=== PATIENT | male | born 1975 ===

== ENCOUNTER 2017-04-26 06:08 | Day surgery (SDC) | payer BC ==
[2017-04-24 10:07] VITALS: BMI 25.6
[2017-04-26] MEDS ORDERED: Propofol 10 mg/ml Inj (20 ML) ONE (07:20)
[2017-04-26] MEDS ORDERED: Rocuronium 10 mg/ml (5 ml) ONE ×2 (07:20→09:23)
[2017-04-26] MEDS ORDERED: Succinylcholine 200 mg/10 ml Inj IV ONE (07:21)
[2017-04-26] MEDS ORDERED: Etomidate 20 mg/10ml Inj IV ONE (07:21)
[2017-04-26] MEDS ORDERED: Phenylephrine 10 mg/ml Inj ONE (07:23)
--- NOTE | 2017-04-26 07:25 | CP.SDSHP ---
Same Day Surgery H & P - History Proposed Procedure: Left shoulder acromioclavicular joint reconstruction Pre-Op Diagnosis: Left shoulder AC joint separation - Previous Medical/Surgical History Pain: 6.Severe Pain Previous Surgical History: None - Allergies Allergies: Allergies No Known Allergies Allergy (Verified 04/14/17 12:49) - Current Medications Current Medications: none - Physical Exam General Appearance: No acute distress Vital Signs: Vital Signs 04/26/17 07:10 Temperature 98 F Pulse Rate 66 Respiratory 18 Rate Blood Pressure 143/78 O2 Sat by Pulse 98 Oximetry Mental Status: Alert & Oriented x3 Neuro: WNL Heart: WNL Lungs: WNL GI: WNL - {Optional Preform as Required} Abdomen: WNL Integument: WNL Ortho: Other (Left shoulder: +tenderness AC joint, ROM 0-100, sensation intact MN/UN/RN, motor intact MN/UN/AIN/PIN, radial pulse intact) ENT: WNL - Impression Impression: Patient is a 41 y/o M with a left shoulder AC joint separation who presents for L shoulder AC joint reconstruction. The risks and benefits of the procedure were explained to the patient and he agrees to proceed. Pt. Evaluated Today:Candidate for Anesthesia & Procedure: Yes - Date & Time Date: 04/26/17 Time: 07:25 Short Stay Discharge - Short Stay Discharge Admitting Diagnosis/Reason for Visit: S83.512IA Disposition: HOME/ ROUTINE Referrals: Luis Miguel Coronel [Primary Care Provider] -
[2017-04-26] MEDS ORDERED: Bupivacaine HCl 0.25% PF (10 ml) Inj ONE (07:27)
[2017-04-26] MEDS ORDERED: Bupivacaine HCl/Epi 0.5% 1:20000 30 ML SOL IJ ONE (07:27)
[2017-04-26] MEDS ORDERED: Neostigmine 1:1000 (1 mg/ml) Inj ONE (07:28)
[2017-04-26] MEDS ORDERED: Lactated Ringer's 1,000 ML IV ONE ×2 (07:30→10:45)
[2017-04-26] MEDS ORDERED: Bacitracin Ointment 30 GM TUBE ONE (07:37)
[2017-04-26] MEDS ORDERED: Lidocaine 1% w Epi 1:100,000 Inj ONE (07:37)
[2017-04-26] MEDS ORDERED: Lidocaine 1% Inj (20ml) ONE (07:37)
[2017-04-26] MEDS ORDERED: Midazolam 2 MG/2 ML VIAL ONE (08:04)
[2017-04-26] MEDS ORDERED: EPINEPHrine 1 mg/ml (1:1000) Inj ONE (09:00)
[2017-04-26] MEDS ORDERED: Dexamethasone 4 mg/1 ml ONE (09:39)
[2017-04-26] MEDS ORDERED: EPINEPHrine 1 mg/ml (1:1000) Inj IV ONE (09:45)
[2017-04-26] MEDS ORDERED: Bupivacaine 0.5% Inj(30mL) ONE (09:57)
[2017-04-26] MEDS ORDERED: MethylPREDNISolone Depo 40 mg/ml Inj ONE (09:57)
[2017-04-26] MEDS ORDERED: HYDROmorphone 0.5 mg/0.5 ml ISec IVP PRN (11:17)
--- NOTE | 2017-04-26 11:20 | PCM.ANESB1 ---
Interscalene Block - Brachial Plexus Date of Procedure: 04/26/17 Anesthesiologist: Yoko Pre-Procedure Diagnosis: Left AC joint disruption Post-Procedure Diagnosis: Samen Procedure Performed: Interscalene Block of Brachial Plexus Left - Procedure Interscalene Block of Brachial Plexus: This procedure was explained to the patient that it is for post-operative pain management. Consent was obtained after a thorough discussion with the patient regarding the benefits and possible complications of local anesthetic block of the Brachial Plexus at the Interscalene area. The patient was brought to the Operating Room and standard monitors were applied. Time out was held with the circulating nurse to confirm the correct surgery and appropriate block. After applying Oxygen by nasal cannula and administering IV Sedation, the patient's head was gently rotated away from the __left____operative shoulder and the anterior scalene groove was carefully palpated. The ultrasound transducer was then applied to the skin in the transverse plane and the brachial plexus was visualized lateral to the carotid artery and in between the anterior and middle scalene muscles. After identification,the anterior lateral portion of the neck was prepped with Chloraprep. At this point, a # 22 gauge Stimuplex 2 inches insulated needle was inserted into the interscalene groove and directed in a caudal and midline direction. The needle was inserted lateral to the ultrasound transducer in-plane towards the brachial plexus in a [id number] direction. Needle advancement was performed carefully under direct ultrasound visualization. Nerve stimulator was used and twitched of the affected extremity including the hand brachialis muscles, biceps and the deltoid was obtained at a current of __0.4___MA. After repeated negative aspiration,___2__cc of__0.5%___,__bupivicaine with 1:200,000 epinephrine were injected and this was followed with _28____cc of _0.5____% _bupivicaine with 1:200,000 epinephrine . Under ultrasound guidance the local anesthetics were observed surrounding the roots of the brachial plexus. The needle was removed intact. The patient had stable vital signs, was conscious and in no apparent distress. The patient tolerated the interscalene block of the bracheal plexus well with stable vital signs and was prepared for subsequent surgery.
[2017-04-26] MEDS ORDERED: Lactated Ringer's 1,000 ML IV SCH (11:30)
[2017-04-26] MEDS ORDERED: Oxycodone/Acetaminophen 5/325 mg Tab PO PRN (11:46)
--- NOTE | 2017-04-26 11:54 | PCM.SURG1 ---
Surgeon's Initial Post Op Note - Surgeon's Notes Surgeon: Canelo Backside Grinder: DENG Lan/ 2nd assist Filiberto Nieto PA-C Anesthesia Administered By: Dr Rina Graham Pre-Operative Diagnosis: A/C separation L shoulder. acetabular fx Operative Findings: as above: A/C separation. L acetabular fx. Post-Operative Diagnosis: as above Operation Performed: Primary repair L A/C separation. Fx L acetabulyum Specimen/Specimens Removed: N/A Estimated Blood Loss: EBL {In ML}: 20 Blood Products Given: N/A Drains Used: No Drains Post-Op Condition: Good Date of Surgery/Procedure: 04/26/17 Time of Surgery/Procedure: 09:30 (time in room/anaesthesia induction time- 8:05)
--- NOTE | 2017-04-26 11:57 | RAD ---
PROCEDURE: Radiographs of the Left Shoulder HISTORY: S/P Left shoulder AC joint reconstruction COMPARISON: No prior. FINDINGS: BONES: No acute fractured. JOINTS: Coracoclavicular postsurgical changes. SOFT TISSUES: Normal. OTHER FINDINGS: None. IMPRESSION: No demonstrated fracture or dislocation. Left coracoclavicular postsurgical changes.
[2017-04-26] MEDS ORDERED: Sodium Chloride 0.9% 1,000 ML IV SCH (12:00)
[2017-04-26 12:44] VITALS: RESP 18
--- NOTE | 2017-04-26 12:57 | RAD ---
PROCEDURE: Left Hip X-ray Radiographs. HISTORY: Left hip fracture COMPARISON: None. FINDINGS: BONES: Normal. No fracture. JOINTS: Normal. SOFT TISSUES: Normal. OTHER FINDINGS: None. IMPRESSION: Normal left hip radiographs.
[2017-04-26 14:47] VITALS: BP 124/78; PULSE 76; TEMP 97.6; O2SAT 97
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
== END 2017-04-26 15:00 | disposition home or self-care (01) ==
LOC: H.OPSURG 06:08
PROVIDERS: ATTEND Orthopaedic Surgery
DX: S43.102A Unspecified dislocation of left acromioclavicular joint, initial encounter (principal); S32.402A Unspecified fracture of left acetabulum, initial encounter for closed fracture; X58.XXXA Exposure to other specified factors, initial encounter; Y92.9 Unspecified place or not applicable
CPT/HCPCS: 23550; 27275; 64415; 73030; 73502; 97161; 97165; 97530; C1776; G8978; G8979; G8980; G8987; G8988; G8989; J0171; J0330; J0690; J1100; J1170; J2001; J2250; J2370; J2405; J2704; J2710; J2765; J7030; J7040; J7120